=== PATIENT | female | born 1980 | race Caucasian/White ===

== ENCOUNTER 2021-04-25 10:59 | Emergency (ER) | payer BC ==
[~2021-04-25] VITALS: Ht 162.6 cm; Wt 50.8 kg
[2021-04-25] MEDS ORDERED: PYRIDIUM DS200 MG PO (16:43)
[2021-04-25] MEDS ORDERED: KETO10TA2 PO (16:43)
== END 2021-04-25 16:53 ==
LOC: ER 10:59
DX: N39.0 Urinary tract infection, site not specified (principal)